=== PATIENT | female | born 1995 | race Caucasian/White ===

== ENCOUNTER → 2017-11-09 | Outpatient (CLI) | payer MEDICAID ==
[~2017-11-09] MED LIST: CIPR250T2 PO; HYDR-3533 PO; IBUP600 PO
[2017-11-09 13:48] LABS: ALBUMIN 3.7 GM/DL (3.4-5.0); BICARBONATE 24.6 MEQ/L (21.0-32.0); CALCIUM 9.2 MG/DL (8.5-10.1); CREATININE 0.85 MG/DL (0.50-1.00)
[2017-11-09 13:49] LABS: DIRECT BILIRUBIN ADULT 0.1 MG/DL (0.0-0.2)
[2017-11-09 13:58] LABS: C-REACTIVE PROTEIN 0.77 MG/DL (0.00-0.30); FREE T3 3.37 PG/ML (2.18-3.98); FREE T4 1.09 NG/DL (0.76-1.46); INDIRECT BILIRUBIN 0.2 MG/DL (0.0-0.8); LUTEINIZING HORMONE 8.6 mIU/mL; TOTAL BILIRUBIN ADULT 0.3 MG/DL (0.2-1.0); TOTAL PROTEIN 7.8 GM/DL (6.4-8.2)
[2017-11-10 16:24] LABS: DNA DOUBLE STRANDED AB <12.3 IU/mL
[2017-11-10 23:53] LABS: THYROGLOB ABS LESS THAN 1 IU/mL (< OR = 1); THYROID PEROX AB (MICROSOMAL) LESS THAN 1 IU/mL (<9)
[2017-11-11 03:51] LABS: IGF BINDING PROTEIN-3 6.7 mg/L (2.9-7.2)
[2017-11-11 13:51] LABS: 17 HYDROXYPROGESTERONE 62 ng/dL (16-283)
[2017-11-11 17:25] LABS: ESTRADIOL 47 pg/mL; INTACT PRO INSULIN 21 pmol/L (3.6-22); TESTOSTERONE,TOTAL 35 ng/dL (8-60)
[2017-11-11 19:53] LABS: C-PEPTIDE 2.59 ng/mL (0.80-3.85)
[2017-11-12 23:52] LABS: THYROID STIMULATING IMMUNOGLOB LESS THAN 89.0 (<140)
== END ==
LOC: CLAB 12:07
PROVIDERS: ATTEND Internal Medicine Endocrinology, Diabetes & Metabolism
DX: E28.2 Polycystic ovarian syndrome (principal); M35.9 Systemic involvement of connective tissue, unspecified; N91.2 Amenorrhea, unspecified; R73.03 Prediabetes
CPT/HCPCS: 36415; 80048; 80076; 82670; 83001; 83002; 83498; 83519; 83525; 84206; 84305; 84403; 84432; 84439; 84443; 84445; 84481; 84681; 86140; 86225; 86376; 86800

== ENCOUNTER 2018-01-05 19:46 | Emergency (ER) | payer MEDICAID ==
[~2018-01-05] VITALS: Ht 157.5 cm; Wt 102.0 kg
[2018-01-05 19:51] VITALS: BP 132/82; PULSE 88; RESP 18; TEMP 97.7; O2SAT 100
[2018-01-05] MEDS ORDERED: SODIUM CHLOR 0.9% 1000 ML INJ 1,000 ML IV ONE (20:36)
[2018-01-05] MEDS ORDERED: ACETAMINOPHEN 325 MG TAB PO ONE (20:45)
[2018-01-05] MEDS ORDERED: METOCLOPRAMIDE HCL 10 MG/2 ML VIAL IVP ONE (20:45)
[2018-01-05] MEDS ORDERED: diphenhydrAMINE HCL 50 MG/ML VIAL IVP ONE (20:45)
[2018-01-05] MEDS ORDERED: SODIUM CHLORIDE 0.9% FLUSH 10 ML FLUSH IVF PRN (20:45)
--- NOTE | 2018-01-05 20:47 | PD ---
HPI Chief Complaint: Headache Time Seen by Provider: 20:27 Travel History International Travel<30 days: No Contact w/Intl Traveler<30days: No Traveled to known affect area: No History of Present Illness HPI This is a 22-year-old female who presents with her mother for evaluation. She reports over the past several months she has had occasional hand tremors, occasional difficulty with word finding and the feeling of off balance. She reports that on October 14 she underwent an MRI of the brain with and without contrast at [facility] for a workup of amenorrhea. The MRI revealed "mild nonspecific focal white matter changes in the high right white matter tracts of the cerebral hemisphere. These findings can be seen with an early demyelinating process such as MS. Otherwise, the rest of the white matter tracts are unremarkable. Recommend a follow-up MRI of the brain with and without contrast in 6 months to check stability." She reports that her primary care physician has scheduled her an appointment with neurologist Dr. Perez on January 24 to further evaluate these findings. She is here today because for the past 5 days she has been having an occipital headache. She describes it as a sharp pain which is constant, unrelieved with Tylenol and Advil. She reports that she has had decreased sleep this week and is just felt "off." Her primary care physician told her to come here for further evaluation. She denies any focal weakness. She denies any chest pain, shortness of breath, abdominal pain , fevers or chills, dysuria. She has no other complaints at this time. PFSH Past Medical History Diminished Hearing: No Gastrointestinal Disorders: Yes (CELIAC DISEASE) Genitourinary: Yes (UTI) Headaches: Yes (CONSTANT) Insomnia: Yes Medical other: Yes Immunizations Current: Yes Tetanus Vaccination: Unknown Influenza Vaccination: No ?: Unknown Past Surgical History Cholecystectomy: Yes Social History Alcohol Use: No Tobacco Use: No Substance Use: No Allergies-Medications (Allergen,Severity, Reaction): Coded Allergies: penicillin G (Unverified Allergy, Unknown, 01/05/18) Reported Meds & Prescriptions Reported Meds & Active Scripts Active Motrin 600 Mg Tab (Ibuprofen) 600 Mg Tab 600 Mg PO Q6H PRN Cipro (Ciprofloxacin) 250 Mg Tab 250 Mg PO BID 3 Days Lortab 5 mg/325 mg (Hydrocodone/Acetaminophen 5 mg/325 mg) 1 Tab 1 Tab PO Q6H PRN Review of Systems Except as stated in HPI: all other systems reviewed are Neg Physical Exam Narrative GENERAL: Well-developed well-nourished female in no acute distress SKIN: Warm and dry. HEAD: Atraumatic. Normocephalic. EYES: Pupils equal and round. No scleral icterus. No injection or drainage. ENT: No nasal bleeding or discharge. Mucous membranes pink and moist. NECK: Trachea midline. No JVD. CARDIOVASCULAR: Regular rate and rhythm. No murmur appreciated. RESPIRATORY: No accessory muscle use. Clear to auscultation. Breath sounds equal bilaterally. GASTROINTESTINAL: Abdomen soft, non-tender, nondistended. Hepatic and splenic margins not palpable. MUSCULOSKELETAL: No obvious deformities. No clubbing. No cyanosis. No edema. NEUROLOGICAL: Awake and alert. No obvious cranial nerve deficits. Motor grossly within normal limits. Normal speech. No obvious tremors at this time. Normal gait. Normal finger to nose, rapid alternating movements. No nystagmus. PSYCHIATRIC: Appropriate mood and affect; insight and judgment normal. Data Data Last Documented VS Vital Signs Date Time Temp Pulse Resp B/P (MAP) Pulse Ox O2 Delivery O2 Flow Rate FiO2 01/05/18 20:49 93 20 146/76 (99) 100 Room Air 01/05/18 19:51 97.7 Orders Orders Basic Metabolic Panel (Bmp) (01/05/18 20:36) Ed Urine Pregnancytest Poc (01/05/18 20:36) Complete Blood Count With Diff (01/05/18 20:36) Magnesium (Mg) (01/05/18 20:36) Urinalysis - C+S If Indicated (01/05/18 20:36) Ct Brain W/O Iv Contrast(Rout) (01/05/18 20:36) Blood Glucose (01/05/18 20:36) Ecg Monitoring (01/05/18 20:36) Iv Access Insert/Monitor (01/05/18 20:36) Oximetry (01/05/18 20:36) Sodium Chloride 0.9% Flush (Ns Flush) (01/05/18 20:45) Sodium Chlor 0.9% 1000 Ml Inj (Ns 1000 M (01/05/18 20:36) Acetaminophen (Tylenol) (01/05/18 20:45) Diphenhydramine Inj (Benadryl Inj) (01/05/18 20:45) Metoclopramide Inj (Reglan Inj) (01/05/18 20:45) Ketorolac Inj (Toradol Inj) (01/05/18 22:15) Labs Laboratory Tests Test 01/05/18 22:06 01/05/18 22:10 White Blood Count 4.5 TH/MM3 Red Blood Count 4.85 MIL/MM3 Hemoglobin 13.4 GM/DL Hematocrit 40.2 % Mean Corpuscular Volume 83.0 FL Mean Corpuscular Hemoglobin 27.6 PG Mean Corpuscular Hemoglobin Concent 33.2 % Red Cell Distribution Width 13.4 % Platelet Count 205 TH/MM3 Mean Platelet Volume 7.9 FL Neutrophils (%) (Auto) 57.4 % Lymphocytes (%) (Auto) 31.6 % Monocytes (%) (Auto) 9.3 % Eosinophils (%) (Auto) 1.3 % Basophils (%) (Auto) 0.4 % Neutrophils # (Auto) 2.6 TH/MM3 Lymphocytes # (Auto) 1.4 TH/MM3 Monocytes # (Auto) 0.4 TH/MM3 Eosinophils # (Auto) 0.1 TH/MM3 Basophils # (Auto) 0.0 TH/MM3 CBC Comment DIFF FINAL Differential Comment Blood Urea Nitrogen 16 MG/DL Creatinine 0.98 MG/DL Random Glucose 79 MG/DL Calcium Level 9.2 MG/DL Magnesium Level 2.0 MG/DL Sodium Level 142 MEQ/L Potassium Level 3.9 MEQ/L Chloride Level 104 MEQ/L Carbon Dioxide Level 27.4 MEQ/L Anion Gap 11 MEQ/L Estimat Glomerular Filtration Rate 72 ML/MIN Urine Color YELLOW Urine Turbidity CLEAR Urine pH 6.0 Urine Specific [place] 1.018 Urine Protein NEG mg/dL Urine Glucose (UA) NEG mg/dL Urine Ketones TRACE mg/dL Urine Occult Blood NEG Urine Nitrite NEG Urine Bilirubin NEG Urine Urobilinogen LESS THAN 2.0 MG/DL Urine Leukocyte Esterase NEG Urine RBC LESS THAN 1 /hpf Urine WBC LESS THAN 1 /hpf Urine Squamous Epithelial Cells 1 /hpf Urine Bacteria RARE /hpf Microscopic Urinalysis Comment CULT NOT INDICATED MDM Medical Decision Making Medical Screen Exam Complete: Yes Emergency Medical Condition: Yes Medical Record Reviewed: Yes Differential Diagnosis Tension headache, intracranial mass, MS, pseudotumor cerebri, occipital neuralgia, migraine Narrative Course The patient was placed on ECG monitoring pulse oximetry. Lab work, CT imaging the brain is been ordered. The patient be given IV fluids, Reglan and Benadryl. MRI results from October 14, 2017 at [facility]: CONCLUSION: 1. Unremarkable MRI of the pituitary gland. 2. Mild nonspecific focal white matter changes in the high right white matter tracts of the cerebral hemisphere. These findings can be seen with an early demyelinating process such as MS. Otherwise, the rest of the white matter tracts are unremarkable. Recommend a follow-up MRI of the brain with and without contrast in 6 months to check stability. Recommend correlation with patient's physical and clinical exam. Electronically signed by: Albert Booker MD 10/14/2017 10:[address] the brain today is normal. I discussed with the on-call neurologist Dr. Perez who she has an appointment with on January 24. He recommends admission and MRI with and without contrast of the brain and MRA of the brain performed in the morning. He will consult on the case. I discussed these recommendations with the patient and her mother at bedside however the patient is adamant that she does not want to be admitted and she would like to go home and follow-up with Dr. Perez on January 24. Her mother would prefer that she stay for admission however the patient is very adamant that she does not want to stay there is nothing that will change her mind. She understands that no definitive diagnosis was able to be made today and therefore urgent or emergent issues were unable to be ruled out and she understands that there are risks with leaving at this time she is willing to accept those risks and sign out AMA. Diagnosis Primary Impression: Cephalgia Additional Impressions: Occasional tremors Left against medical advice Referrals: Brad Perez MD PhD Departure Forms: Tests/Procedures, Work Release Enter return to work date: January 09, 2018 Additional Instructions: As discussed, return for any acutely emergent medical conditions. Follow-up with your neurologist as scheduled. Med/Other Pt SpecificInfo: No Change to Meds Disposition: 07 AGAINST MEDICAL ADVICE Condition: Stable Wes Grady January 05, 2018 20:47
[2018-01-05 20:49] VITALS: BP 146/76; PULSE 93; RESP 20; O2SAT 100
--- NOTE | 2018-01-05 22:08 | RADRPT ---
EXAM DATE: 01/05/2018 9:58 PM EDT AGE/SEX: 22 years / Female INDICATIONS: Cephalgia. CLINICAL DATA: This is the patient's initial encounter. Patient reports that signs and symptoms have been present for 1 day and indicates a pain score of 8/10. MEDICAL/SURGICAL HISTORY: None. None. RADIATION DOSE: 41.79 CTDI (mGy) COMPARISON: [facility], MR BRAIN W AND W/O CONTRAST, 10/14/2017. . TECHNIQUE: CT of the head without contrast. Using automated exposure control and adjustment of the mA and/or kV according to patient size, radiation dose was kept as low as reasonably achievable to ob tain optimal diagnostic quality images. FINDINGS: Cerebrum: The ventricles are normal for age. No evidence of midline shift, mass lesion, hemorrhage or acute infarction. No extraaxial fluid collections are seen. Posterior Fossa: The cerebellum and brainstem are intact. The 4th ventricle is midline. The cerebe llopontine angle is unremarkable. Extracranial: The visualized portion of the orbits is intact. Skull: The calvaria is intact. No evidence of skull fracture. CONCLUSION: 1. Negative noncontrast CT brain. Electronically signed by: Yuan Hay MD 01/05/2018 10:06 PM EDT
[2018-01-05] MEDS ORDERED: KETOROLAC TROMETHAMINE 30 MG/ML (IVP) VIAL IV PUSH ONE (22:15)
[2018-01-05 22:42] LABS: BACTERIA, URINE RARE /hpf; BILIRUBIN, URINE NEG (NEG); BLOOD, URINE NEG (NEG); GLUCOSE,URINE NEG (NEG); KETONE, URINE TRACE mg/dL (NEG); NITRITE,URINE NEG (NEG); SQUAMOUS EPITHELIAL CELL URINE 1 /hpf (0-5); URINE COLOR YELLOW (YELLW/STRAW); URINE LEUKOCYTE ESTERASE NEG (NEG)
[2018-01-05 22:49] LABS: AUTOMATED NEUTROPHIL # 2.6 TH/MM3 (1.8-7.7); BASOPHIL % 0.4 % (0.0-2.0); EOSINOPHIL # 0.1 TH/MM3 (0-0.4); EOSINOPHIL % 1.3 % (0.0-4.0); HEMATOCRIT 40.2 % (35.0-46.0); HEMOGLOBIN 13.4 GM/DL (11.6-15.3); LYMPH % 31.6 % (9.0-44.0); LYMPHOCYTE # 1.4 TH/MM3 (1.0-4.8); MEAN CORPUSCULAR HEMOGLOBIN 27.6 PG (27.0-34.0); MEAN CORPUSCULAR HGB CONC 33.2 % (32.0-36.0); MEAN PLATELET VOLUME 7.9 FL (7.0-11.0); MONO % 9.3 % (0.0-8.0); MONOCYTE # 0.4 TH/MM3 (0-0.9); NEUT % 57.4 % (16.0-70.0); PLATELET COUNT 205 TH/MM3 (150-450); RED BLOOD COUNT 4.85 MIL/MM3 (4.00-5.30); RED CELL DISTRIBUTION WIDTH 13.4 % (11.6-17.2); WHITE BLOOD COUNT 4.5 TH/MM3 (4.0-11.0)
[2018-01-05 22:56] LABS: BICARBONATE 27.4 MEQ/L (21.0-32.0); CALCIUM 9.2 MG/DL (8.5-10.1); CREATININE 0.98 MG/DL (0.50-1.00)
== END 2018-01-05 23:18 | disposition left against medical advice (07) ==
LOC: NEPC 19:46
DX: R51 Headache (principal); R25.1 Tremor, unspecified; G47.00 Insomnia, unspecified; K90.0 Celiac disease; Z88.0 Allergy status to penicillin
CPT/HCPCS: 70450; 80048; 81001; 83735; 84703; 85025; 96374; 96375; 99284; J1200; J1885; J2765; J7030

== ENCOUNTER → 2018-01-26 | Outpatient (CLI) | payer MEDICAID ==
[~2018-01-26] MED LIST changes: +IBUP-232 PO; +TYLE325T PO
[2018-01-26 10:29] LABS: AUTOMATED NEUTROPHIL # 3.9 TH/MM3 (1.8-7.7); BASOPHIL % 0.4 % (0.0-2.0); EOSINOPHIL # 0.2 TH/MM3 (0-0.4); EOSINOPHIL % 2.6 % (0.0-4.0); HEMATOCRIT 38.5 % (35.0-46.0); HEMOGLOBIN 12.8 GM/DL (11.6-15.3); LYMPH % 29.8 % (9.0-44.0); LYMPHOCYTE # 1.9 TH/MM3 (1.0-4.8); MEAN CELL VOLUME 85.3 FL (80.0-100.0); MEAN CORPUSCULAR HEMOGLOBIN 28.3 PG (27.0-34.0); MEAN CORPUSCULAR HGB CONC 33.2 % (32.0-36.0); MEAN PLATELET VOLUME 7.6 FL (7.0-11.0); MONO % 4.6 % (0.0-8.0); MONOCYTE # 0.3 TH/MM3 (0-0.9); NEUT % 62.6 % (16.0-70.0); PLATELET COUNT 248 TH/MM3 (150-450); RED BLOOD COUNT 4.51 MIL/MM3 (4.00-5.30); WHITE BLOOD COUNT 6.3 TH/MM3 (4.0-11.0)
== END ==
LOC: CLAB 09:45
PROVIDERS: ATTEND Specialist
DX: M54.2 Cervicalgia (principal); G93.9 Disorder of brain, unspecified; I48.91 Unspecified atrial fibrillation
CPT/HCPCS: 36415; 85025; 85610; 85730

== ENCOUNTER 2018-01-27 09:43 | Day surgery (SDC) | payer MEDICAID ==
[~2018-01-27] VITALS: Ht 157.5 cm; Wt 102.0 kg
[~2018-01-27 09:43] MED LIST changes: -IBUP-232 PO; -TYLE325T PO
[2018-01-27 09:58] VITALS: BP 142/79; PULSE 72; RESP 20; TEMP 98.5; O2SAT 96
[2018-01-27] MEDS ORDERED: IBUP-232 PO (10:46)
[2018-01-27] MEDS ORDERED: TYLE325T PO (10:46)
[2018-01-27] MEDS ORDERED: SODIUM CHLOR 0.9% 1000 ML INJ 1,000 ML IV ONE (11:00)
[2018-01-27 11:55] VITALS: BP 114/57; PULSE 68; RESP 18; TEMP 98; O2SAT 99
[2018-01-27 13:25] LABS: CSF LYMPHOCYTES 0 %; CSF NEUTROPHILS 0 %; RBC TUBE #4 3 /MM3; SUPERNATE COLOR TUBE #1 CLEAR (CLEAR); VOLUME TUBE # 1 5.5 ML; WBC TUBE #4 0 /MM3 (0-10)
[2018-01-27 13:55] VITALS: BP 131/70; PULSE 78; RESP 18; O2SAT 98
--- NOTE | 2018-01-27 14:30 | RADRPT ---
EXAM DATE: 01/27/2018 12:06 PM EDT AGE/SEX: 22 years / Female INDICATIONS: Patient with pseudotumor cerebri in need of lumbar puncture with opening pressures. CLINICAL DATA: This is the patient's initial encounter. Patient reports that signs and symptoms have been present for 4 - 6 months and indicates a pain score of 0/10. MEDICAL/SURGICAL HISTORY: Hypothyroidism. Celiac disease.UTI.Headaches. Cholecystectomy. COMPARISON: No prior exams available for comparison. FLUORO TIME (min): 1.15 IMAGE SERIES: 2 ACCESS SITE: L4-5 LUMBAR PUNCTURE TIME: 1137 hours OPENING PRESSURE: 27 cm of water CLOSING PRESSURE: 15 cm of water FLUID: Total volume of 25 cc of clear fluid was removed. Fluid was sent to lab for ordered studies. . . PROCEDURE: 1. Fluoroscopic guided lumbar puncture. 2. Recording of opening pressure. The risks, benefits and alternatives to the procedure were explained and verbal and written consent w as obtained. The site was prepped in sterile fashion. Full sterile technique was used, including ca p, mask, sterile gloves and gown and a large sterile sheet. Hand hygiene and 2% chlorhexidine and/or betadine/alcohol prep was utilized per protocol for cutaneous antisepsis. The skin and subcutaneous tissues were infiltrated with local anesthetic solution. With fluoroscopic guidance the lumbar thecal sac was punctured at the above level described above and the opening pressure was recorded. The above described fluid was removed without difficulty. The patient tolerated the procedure well and there were no complications. CONCLUSION: Uncomplicated fluoroscopically guided lumbar puncture with pressures as above. Electronically signed by: Dustin Paz MD 01/27/2018 2:29 PM EDT
[2018-01-27 16:24] LABS: TOTAL PROTEIN,CSF 29.4 MG/DL (15.0-45.0)
[2018-01-30 11:01] LABS: ALBUMIN CSF 15.7 mg/dL (<=27.0); ALBUMIN SERUM 3800 mg/dL (3200 - 4800); IGG CSF 1.9 mg/dL (<=8.1); IGG INDEX CSF 0.43 (<=0.85); IGG SERUM 1070 mg/dL (767 - 1590); IGG/ALBUMIN CSF 0.12 (<=0.21); IGG/ALBUMIN SERUM 0.28 (<=0.40); OLIGOCLONAL BANDING CSF 0 bands; OLIGOCLONAL BANDING INTERPRET 0 bands (<4); OLIGOCLONAL BANDING SERUM 0 bands
== END 2018-01-27 14:15 | disposition home or self-care (01) ==
LOC: HROP 09:43 → HRIP 09:44 → HROP 14:15
PROVIDERS: ATTEND Specialist
DX: G93.2 Benign intracranial hypertension (principal); E03.9 Hypothyroidism, unspecified; K90.0 Celiac disease
CPT/HCPCS: 62270; 77003; 82040; 82042; 82784; 82945; 83873; 83916; 84157; 87070; 87205; 89051